=== PATIENT | female | born 1975 | race African-American/Black ===

== ENCOUNTER 2020-07-12 19:22 | Inpatient (IN) | payer OTHER ==
[2020-07-12] MEDS ORDERED: RAPID SEQUENCE INTUBATION KIT NR ONE (19:57)
[2020-07-12] MEDS ORDERED: PROPOFOL 1,000,000 MCG/100 ML VIAL ONE (20:08)
[2020-07-12] MEDS ORDERED: ROCURONIUM BROMIDE 50 MG/5 ML VIAL IV ONE (20:12)
[2020-07-12] MEDS ORDERED: ETOMIDATE 40 MG/20 ML VIAL IVPUSH ONE (20:12)
[2020-07-12] MEDS: PROPOFOL 1,000,000 MCG/100 ML VIAL IVPB SCH (20:15)
[2020-07-12] MEDS ORDERED: PIPERACILLIN/TAZOB 4.5 GM 4.5 GM in DEXTROSE 5%-WATER 100 ML IVPB ONE (20:19)
[2020-07-12] MEDS ORDERED: VANCOMYCIN 1 GM in D5W (PRE-DOCKED) 1,000 MG/250 ML IVPB ONE (20:19)
[2020-07-12] MEDS ORDERED: SODIUM CHLORIDE 0.9% 1000 ML INFUS.BAG IV ONE (20:20)
[2020-07-12 20:27] LABS: BASO % 0.5 % (0-2.0); HEMATOCRIT 48.3 % (32.4-45.2); HEMOGLOBIN 14.9 GM/dL (10.7-15.3); LYMPH % 14.6 % (8-40); MCH 24.5 pg (25.7-33.7); MCHC 30.9 g/dl (32.0-36.0); MEAN CELL VOLUME 79.3 fl (80-96); MEAN PLT VOLUME 8.4 fl (7.5-11.1); MONO % 8.3 % (3.8-10.2); NEUT % 76.6 % (42.8-82.8); PLATELET COUNT 210 K/MM3 (134-434); RBC 6.09 M/mm3 (3.60-5.2); RDW 18.4 % (11.6-15.6); WHITE BLOOD COUNT 10.6 K/mm3 (4.0-10.0)
[2020-07-12 20:34] LABS: INR 0.94 (0.83-1.09); PROTHROMBIN TIME (PATIENT) 11.6 SEC (9.7-13.0)
[2020-07-12 20:54] LABS: VENOUS BASE EXCESS -6.1 mmol/L (-2-2)
[2020-07-12 20:54] LABS: CHLORIDE 100 mmol/L (98-107); POTASSIUM 3.8 mmol/L (3.5-5.1); SODIUM 144 mmol/L (136-145)
[2020-07-12 20:56] LABS: VENOUS PCO2 81.2 mmHg (38-52); VENOUS PH 7.12 (7.310-7.410)
[2020-07-12 20:57] LABS: ALBUMIN 3.4 g/dl (3.4-5.0); ANION GAP 16 MMOL/L (8-16); BLOOD UREA NITROGEN 63.9 mg/dL (7-18); CALCIUM 8.3 mg/dL (8.5-10.1); CO2 28 mmol/L (21-32); GLUCOSE,RANDOM 295 mg/dL (74-106); MAGNESIUM 2.6 mg/dL (1.8-2.4)
[2020-07-12 20:58] LABS: BILIRUBIN,DIRECT 0.2 mg/dL (0.0-0.2)
[2020-07-12 21:00] LABS: CREATININE 4.2 mg/dL (0.55-1.3); SGOT/AST 31 U/L (15-37); SGPT/ALT 17 U/L (13-61)
[2020-07-12 21:00] LABS: LDH 361 U/L (84-246)
[2020-07-12] MEDS ORDERED: LACTATED RINGERS SOLUTION 1000 ML INFUS.BAG IV ONE (21:00)
[2020-07-12 21:02] LABS: BILIRUBIN,TOTAL 0.5 mg/dL (0.2-1); TOT PROT 7.6 g/dl (6.4-8.2)
[2020-07-12 21:03] LABS: ALK PHOS 74 U/L (45-117)
[2020-07-12 21:04] LABS: LACTIC ACID 2.6 mmol/L (0.4-2.0)
[2020-07-12] MEDS ORDERED: MIDAZOLAM 100 MG/100 ML MG IVPB ONE (21:16)
[2020-07-12] MEDS: MIDAZOLAM 100 MG in SODIUM CHLORIDE 100 ML IVPB SCH (21:33)
[2020-07-12 21:38] LABS: ARTERIAL BLOOD GAS BASE EXCESS -2.9 mmol/L (-2-2); ARTERIAL BLOOD GAS PO2 96.4 mmHg (80-100); ARTERIAL BLOOD GAS pH 7.309 (7.350-7.450)
[2020-07-12 21:40] LABS: ALLENS TEST POSITIVE; ARTERIAL BLD GAS O2 SATURATION 96.5 mmHg (95-98)
[2020-07-12 21:41] LABS: VENT MODE V-AC; VENT RATE 18
[2020-07-12] MEDS ORDERED: PIPERACILLIN/TAZOB 4.5 GM 4.5 GM/100 ML BAG IVPB ONE (21:44)
[2020-07-12] MEDS ORDERED: FENTANYL IVPB 500 MCG/100 ML BAG IVPB ONE (21:48)
[2020-07-12] MEDS: FENTANYL IVPB 500 MCG/100 ML BAG IVPB SCH (21:55)
[2020-07-12 21:56] LABS: URINE APPEARANCE CLOUDY; URINE BILIRUBIN NEGATIVE (NEGATIVE); URINE COLOR DK YELLOW; URINE GLUCOSE (UA) NEGATIVE (NEGATIVE); URINE KETONE TRACE (NEGATIVE); URINE LEUK ESTERASE TRACE (NEGATIVE); URINE NITRITE NEGATIVE (NEGATIVE); URINE PROTEIN 3+ (NEGATIVE)
[2020-07-12 22:06] LABS: COCAINE, UR NEGATIVE ng/ml (CUTOFF=300); URINE AMPHETAMINES NEGATIVE ng/ml (CUTOFF=500); URINE BARBITURATES NEGATIVE ng/ml (CUTOFF=200)
[2020-07-12 22:07] LABS: METHADONE, UR NEGATIVE ng/ml (CUTOFF=300); PHENCYCLIDINE,URINE NEGATIVE ng/ml (CUTOFF=25)
[2020-07-12 22:20] LABS: OPIATES, URI NEGATIVE ng/ml (CUTOFF=300)
[2020-07-12 22:22] LABS: URINE BENZODIAZEPINES NEGATIVE ng/ml (CUTOFF=200)
[2020-07-12] MEDS ORDERED: VANCOMYCIN 1 GRAM (PRE-DOCKED) 1,000 MG/250 ML BAG IVPB ONE (22:29)
[2020-07-12 22:31] LABS: EPI CELLS 24 /uL (0-25.1); HYALINE CASTS 10 /uL (0-3.1); URINE BACTERIA 3298 /uL (0-1359); URINE RBC 11 /uL (0-23.9); URINE WBC 247 /uL (0-25.8)
[2020-07-12] MEDS ORDERED: SODIUM CHLORIDE 1,000 ML IV STA (23:19)
[2020-07-12 23:31] LABS: URINE CRYSTALS NEGATIVE /hpf
[2020-07-13] MEDS ORDERED: PIPERACILLIN/TAZOBACTAM 2.25 GM VIAL IVPB ONE ×2 (02:52→10:11)
[2020-07-13] MEDS ORDERED: DEXTROSE 5%-WATER - 50 ML IVPB ONE ×2 (02:53→10:11)
[2020-07-13] MEDS: VECURONIUM BROMIDE 100 MG/100 ML BAG IVPB SCH (02:57)
[2020-07-13] MEDS: PIPERACILLIN/TAZOB 2.25 GM 2.25 GM in DEXTROSE 5%-WATER - 50 ML IVPB SCH ×3 (02:57→16:46)
[2020-07-13] MEDS ORDERED: FENTANYL NS IVPB 500 MCG/100 ML BAG IVPB ONE (04:16)
[2020-07-13 04:20] LABS: POTASSIUM 3.5 mmol/L (3.5-5.1)
[2020-07-13 04:21] LABS: CALCIUM 7.1 mg/dL (8.5-10.1)
[2020-07-13 04:23] LABS: BLOOD UREA NITROGEN 60.6 mg/dL (7-18)
[2020-07-13 04:25] LABS: CREATININE 3.5 mg/dL (0.55-1.3)
[2020-07-13 04:27] LABS: BILIRUBIN,TOTAL 0.4 mg/dL (0.2-1); TOT PROT 5.7 g/dl (6.4-8.2)
[2020-07-13 04:46] LABS: ALBUMIN 2.5 g/dl (3.4-5.0)
[2020-07-13 05:44] LABS: ARTERIAL BLOOD GAS BASE EXCESS -1.8 mmol/L (-2-2); ARTERIAL BLOOD GAS PO2 78.4 mmHg (80-100); ARTERIAL BLOOD GAS pH 7.389 (7.350-7.450)
[2020-07-13 05:48] LABS: ALLENS TEST POSITIVE
[2020-07-13 05:49] LABS: VENT MODE A/C; VENT RATE 18
[2020-07-13] MEDS: HEPARIN NA (PORCINE) 5,000 UNITS/ML 1ML VIAL SQ SCH ×2 (06:17→13:13)
[2020-07-13 06:47] LABS: HEMATOCRIT 42.3 % (32.4-45.2); HEMOGLOBIN 13.6 GM/dL (10.7-15.3); MCH 24.9 pg (25.7-33.7); MCHC 32.2 g/dl (32.0-36.0); MEAN CELL VOLUME 77.4 fl (80-96); MEAN PLT VOLUME 8.4 fl (7.5-11.1); PLATELET COUNT 188 K/MM3 (134-434); RBC 5.47 M/mm3 (3.60-5.2); RDW 18.2 % (11.6-15.6); WHITE BLOOD COUNT 6.5 K/mm3 (4.0-10.0)
[2020-07-13 07:06] LABS: POTASSIUM 3.7 mmol/L (3.5-5.1)
[2020-07-13 07:19] LABS: CALCIUM 7.9 mg/dL (8.5-10.1)
[2020-07-13 07:20] LABS: ALBUMIN 2.5 g/dl (3.4-5.0); CREATININE 3.5 mg/dL (0.55-1.3); MAGNESIUM 2.1 mg/dL (1.8-2.4)
[2020-07-13 07:21] LABS: BLOOD UREA NITROGEN 62.8 mg/dL (7-18); PHOSPHOROUS 4.6 mg/dL (2.5-4.9)
[2020-07-13 07:22] LABS: BILIRUBIN,TOTAL 0.5 mg/dL (0.2-1); TOT PROT 5.8 g/dl (6.4-8.2)
[2020-07-13] MEDS: DEXAMETHASONE SOD PHOSPHATE 4 MG/1 ML VIAL IVPUSH SCH (10:13)
[2020-07-13 10:50] LABS: POTASSIUM 3.5 mmol/L (3.5-5.1)
[2020-07-13 10:52] LABS: CALCIUM 7.5 mg/dL (8.5-10.1)
[2020-07-13 10:53] LABS: ALBUMIN 2.6 g/dl (3.4-5.0); BLOOD UREA NITROGEN 62.6 mg/dL (7-18)
[2020-07-13 10:56] LABS: CREATININE 3.5 mg/dL (0.55-1.3)
[2020-07-13 10:57] LABS: BILIRUBIN,TOTAL 0.5 mg/dL (0.2-1); TOT PROT 5.8 g/dl (6.4-8.2)
[2020-07-13] MEDS: MUPIROCIN 2% TOPICAL OINTMENT FOR DECOLONIZATION NS SCH (11:00)
[2020-07-13] MEDS: INSULIN SLIDING SCALE (NOVOLOG) 1 VIAL SQ SCH ×2 (11:05→17:05)
[2020-07-13] MEDS ORDERED: DEXTROSE 5%-WATER 100 ML IVPB ONE (12:17)
[2020-07-13] MEDS: CEFTRIAXONE 2 GM in DEXTROSE 5%-WATER 100 ML IVPB SCH (12:20)
[2020-07-13] MEDS: AZITHROMYCIN IVPB 500 MG/250 ML BAG IVPB SCH (12:20)
[2020-07-13] MEDS: LACTATED RINGERS SOLUTION 1,000 ML/1,000 ML INFUS.BAG IV SCH (16:45)
[2020-07-13] MEDS ORDERED: MIDAZOLAM IN 0.9 % SOD.CHLORID 1 MG/1 ML PLAST..BAG ONE (22:09)
[2020-07-13] MEDS: MIDAZOLAM 100 MG in SODIUM CHLORIDE 100 ML IVPB SCH (22:23)
[2020-07-14] MEDS: HEPARIN NA (PORCINE) 5,000 UNITS/ML 1ML VIAL SQ SCH ×4 (00:04→22:48)
[2020-07-14] MEDS: INSULIN SLIDING SCALE (NOVOLOG) 1 VIAL SQ SCH ×5 (00:47→22:49)
[2020-07-14] MEDS: MUPIROCIN 2% TOPICAL OINTMENT FOR DECOLONIZATION NS SCH ×3 (06:55→22:51)
[2020-07-14] MEDS: CHLORHEXIDINE GLUCONATE 4% CLEANSER FOR DECOLONIZATION TP SCH ×2 (06:55→22:52)
[2020-07-14 06:56] LABS: ARTERIAL BLOOD GAS BASE EXCESS -5.4 mmol/L (-2-2); ARTERIAL BLOOD GAS PO2 53.5 mmHg (80-100); ARTERIAL BLOOD GAS pH 7.357 (7.350-7.450)
[2020-07-14] MEDS ORDERED: MIDAZOLAM IN 0.9 % SOD.CHLORID 1 MG/1 ML PLAST..BAG ONE ×2 (06:59→16:46)
[2020-07-14 07:00] LABS: ALLENS TEST POSITIVE
[2020-07-14 07:01] LABS: VENT MODE A/C; VENT RATE 28
[2020-07-14 07:37] LABS: BASO % 0.2 % (0-2.0); HEMOGLOBIN 13.8 GM/dL (10.7-15.3); LYMPH % 6.2 % (8-40); MCH 24.7 pg (25.7-33.7); MCHC 32.1 g/dl (32.0-36.0); MEAN CELL VOLUME 76.9 fl (80-96); MEAN PLT VOLUME 9.3 fl (7.5-11.1); NEUT % 89.6 % (42.8-82.8); PLATELET COUNT 175 K/MM3 (134-434); RBC 5.59 M/mm3 (3.60-5.2); RDW 18.7 % (11.6-15.6); WHITE BLOOD COUNT 6.6 K/mm3 (4.0-10.0)
[2020-07-14 07:47] LABS: POTASSIUM 3.8 mmol/L (3.5-5.1)
[2020-07-14 07:48] LABS: ALBUMIN 2.2 g/dl (3.4-5.0); BLOOD UREA NITROGEN 61.5 mg/dL (7-18)
[2020-07-14 07:51] LABS: CREATININE 2.7 mg/dL (0.55-1.3); PHOSPHOROUS 5.1 mg/dL (2.5-4.9)
[2020-07-14 07:52] LABS: BILIRUBIN,TOTAL 0.3 mg/dL (0.2-1)
[2020-07-14 07:53] LABS: TOT PROT 5.6 g/dl (6.4-8.2)
[2020-07-14] MEDS ORDERED: DEXTROSE 5%-WATER 100 ML IVPB ONE (08:10)
[2020-07-14] MEDS: DEXAMETHASONE SOD PHOSPHATE 4 MG/1 ML VIAL IVPUSH SCH (09:01)
[2020-07-14] MEDS: AZITHROMYCIN IVPB 500 MG/250 ML BAG IVPB SCH (09:02)
[2020-07-14] MEDS: CEFTRIAXONE 2 GM in DEXTROSE 5%-WATER 100 ML IVPB SCH (09:02)
[2020-07-14 15:26] VITALS: BMI 36.8
[2020-07-14] MEDS: DEXAMETHASONE SOD PHOSPHATE 10 MG/1 ML VIAL IVPUSH SCH (17:24)
[2020-07-14] MEDS: AMINO ACIDS/PROTEIN HYDROLYS 30 ML LIQUID.PKT PO SCH (17:24)
[2020-07-14] MEDS: FENTANYL IVPB 500 MCG/100 ML BAG IVPB SCH (17:26)
[2020-07-14] MEDS: PROPOFOL 1,000,000 MCG/100 ML VIAL IVPB SCH (17:26)
[2020-07-14] MEDS: VECURONIUM BROMIDE 100 MG/100 ML BAG IVPB SCH (17:27)
[2020-07-14] MEDS: LACTATED RINGERS SOLUTION 1,000 ML/1,000 ML INFUS.BAG IV SCH ×2 (17:27)
[2020-07-14] MEDS ORDERED: DEXAMETHASONE SOD PHOSPHATE 10 MG/1 ML VIAL IVPUSH SCH (18:00)
[2020-07-14] MEDS: PIPERACILLIN/TAZOB 2.25 GM 2.25 GM in DEXTROSE 5%-WATER - 50 ML IVPB SCH (18:00)
[2020-07-14] MEDS ORDERED: ALBUTEROL SO4 0.083% IH SOL 2.5 MG/3 ML VIAL.NEB. NEB PRN (18:54)
[2020-07-14] MEDS: NOREPINEPHRINE NS PREMIX 8,000 MCG/500 ML BAG IVPB SCH (20:40)
[2020-07-15] MEDS: DEXAMETHASONE SOD PHOSPHATE 10 MG/1 ML VIAL IVPUSH SCH ×3 (01:41→18:19)
[2020-07-15] MEDS: INSULIN SLIDING SCALE (NOVOLOG) 1 VIAL SQ SCH ×4 (06:43→22:54)
[2020-07-15] MEDS: HEPARIN NA (PORCINE) 5,000 UNITS/ML 1ML VIAL SQ SCH ×3 (06:43→22:27)
[2020-07-15 07:06] LABS: BASO % 0.6 % (0-2.0); HEMATOCRIT 45.2 % (32.4-45.2); HEMOGLOBIN 14.7 GM/dL (10.7-15.3); LYMPH % 2.4 % (8-40); MCHC 32.5 g/dl (32.0-36.0); MONO % 3.7 % (3.8-10.2); NEUT % 93.3 % (42.8-82.8); PLATELET COUNT 237 K/MM3 (134-434); RBC 5.87 M/mm3 (3.60-5.2); WHITE BLOOD COUNT 9.1 K/mm3 (4.0-10.0)
[2020-07-15] MEDS ORDERED: MIDAZOLAM IN 0.9 % SOD.CHLORID 1 MG/1 ML PLAST..BAG ONE ×2 (07:18→18:16)
[2020-07-15] MEDS ORDERED: DEXTROSE 5%-WATER 100 ML IVPB ONE (07:19)
[2020-07-15 07:25] LABS: POTASSIUM 4.4 mmol/L (3.5-5.1)
[2020-07-15 07:29] LABS: ALBUMIN 2.4 g/dl (3.4-5.0); BLOOD UREA NITROGEN 57.9 mg/dL (7-18); MAGNESIUM 2.3 mg/dL (1.8-2.4)
[2020-07-15 07:31] LABS: CREATININE 2.4 mg/dL (0.55-1.3)
[2020-07-15 07:32] LABS: PHOSPHOROUS 6.1 mg/dL (2.5-4.9)
[2020-07-15 07:33] LABS: BILIRUBIN,TOTAL 0.4 mg/dL (0.2-1); TOT PROT 6.3 g/dl (6.4-8.2)
[2020-07-15] MEDS: MIDAZOLAM 100 MG in SODIUM CHLORIDE 100 ML IVPB SCH ×2 (07:45→21:15)
[2020-07-15] MEDS: VECURONIUM BROMIDE 100 MG/100 ML BAG IVPB SCH (07:45)
[2020-07-15] MEDS: PROPOFOL 1,000,000 MCG/100 ML VIAL IVPB SCH ×2 (09:21→22:25)
[2020-07-15] MEDS: FENTANYL IVPB 500 MCG/100 ML BAG IVPB SCH ×2 (09:21→21:15)
[2020-07-15] MEDS: CEFTRIAXONE 2 GM in DEXTROSE 5%-WATER 100 ML IVPB SCH (09:21)
[2020-07-15] MEDS: MUPIROCIN 2% TOPICAL OINTMENT FOR DECOLONIZATION NS SCH ×2 (09:22→22:26)
[2020-07-15] MEDS: AZITHROMYCIN IVPB 500 MG/250 ML BAG IVPB SCH (09:22)
[2020-07-15] MEDS: AMINO ACIDS/PROTEIN HYDROLYS 30 ML LIQUID.PKT PO SCH ×2 (09:22→18:19)
[2020-07-15 09:48] LABS: ANISOCYTOSIS 0; MACROCYTOSIS 0; PLATELET ESTIMATE NORMAL
[2020-07-15] MEDS: LACTATED RINGERS SOLUTION 1,000 ML/1,000 ML INFUS.BAG IV SCH (14:44)
[2020-07-15] MEDS: NOREPINEPHRINE NS PREMIX 8,000 MCG/500 ML BAG IVPB SCH (19:45)
[2020-07-15] MEDS: CHLORHEXIDINE GLUCONATE 4% CLEANSER FOR DECOLONIZATION TP SCH (22:27)
[2020-07-16] MEDS: DEXAMETHASONE SOD PHOSPHATE 10 MG/1 ML VIAL IVPUSH SCH ×3 (02:54→17:50)
[2020-07-16] MEDS: VECURONIUM BROMIDE 100 MG/100 ML BAG IVPB SCH (03:40)
[2020-07-16] MEDS: HEPARIN NA (PORCINE) 5,000 UNITS/ML 1ML VIAL SQ SCH ×3 (06:21→22:28)
[2020-07-16] MEDS: INSULIN SLIDING SCALE (NOVOLOG) 1 VIAL SQ SCH ×4 (06:22→22:29)
[2020-07-16 06:25] LABS: HEMATOCRIT 44.1 % (32.4-45.2); HEMOGLOBIN 13.9 GM/dL (10.7-15.3); MCH 24.7 pg (25.7-33.7); MCHC 31.6 g/dl (32.0-36.0); MEAN CELL VOLUME 77.9 fl (80-96); MEAN PLT VOLUME 9.5 fl (7.5-11.1); PLATELET COUNT 208 K/MM3 (134-434); RBC 5.65 M/mm3 (3.60-5.2); RDW 18.8 % (11.6-15.6); WHITE BLOOD COUNT 7.7 K/mm3 (4.0-10.0)
[2020-07-16 06:31] LABS: POTASSIUM 4.5 mmol/L (3.5-5.1)
[2020-07-16 06:33] LABS: CALCIUM 8.1 mg/dL (8.5-10.1)
[2020-07-16 06:34] LABS: MAGNESIUM 2.4 mg/dL (1.8-2.4)
[2020-07-16 06:37] LABS: PHOSPHOROUS 4.9 mg/dL (2.5-4.9)
[2020-07-16] MEDS ORDERED: MIDAZOLAM IN 0.9 % SOD.CHLORID 1 MG/1 ML PLAST..BAG ONE ×2 (06:56→18:05)
[2020-07-16] MEDS ORDERED: FENTANYL NS IVPB 500 MCG/100 ML BAG IVPB ONE ×2 (06:56→23:17)
[2020-07-16] MEDS: AMINO ACIDS/PROTEIN HYDROLYS 30 ML LIQUID.PKT PO SCH ×2 (08:50→17:50)
[2020-07-16] MEDS: MUPIROCIN 2% TOPICAL OINTMENT FOR DECOLONIZATION NS SCH ×2 (09:00→22:28)
[2020-07-16] MEDS: AZITHROMYCIN IVPB 500 MG/250 ML BAG IVPB SCH (09:00)
[2020-07-16] MEDS: CEFTRIAXONE 2 GM in DEXTROSE 5%-WATER 100 ML IVPB SCH (09:38)
[2020-07-16] MEDS: LACTATED RINGERS SOLUTION 1,000 ML/1,000 ML INFUS.BAG IV SCH (14:03)
[2020-07-16] MEDS: NOREPINEPHRINE NS PREMIX 8,000 MCG/500 ML BAG IVPB SCH (19:45)
[2020-07-16] MEDS: PROPOFOL 1,000,000 MCG/100 ML VIAL IVPB SCH (21:45)
[2020-07-16] MEDS: INSULIN (LEVEMIR) 100 UNITS/ML UNITS SQ SCH (22:29)
[2020-07-16] MEDS: CHLORHEXIDINE GLUCONATE 4% CLEANSER FOR DECOLONIZATION TP SCH (22:29)
[2020-07-16] MEDS: FENTANYL IVPB 500 MCG/100 ML BAG IVPB SCH (23:20)
[2020-07-17] MEDS: DEXAMETHASONE SOD PHOSPHATE 10 MG/1 ML VIAL IVPUSH SCH ×3 (01:36→17:16)
[2020-07-17 06:08] LABS: ARTERIAL BLD GAS O2 SATURATION 85.8 mmHg (95-98); ARTERIAL BLOOD GAS BASE EXCESS -0.6 mmol/L (-2-2); ARTERIAL BLOOD GAS PO2 53.9 mmHg (80-100)
[2020-07-17] MEDS: INSULIN SLIDING SCALE (NOVOLOG) 1 VIAL SQ SCH ×4 (06:23→21:04)
[2020-07-17] MEDS: HEPARIN NA (PORCINE) 5,000 UNITS/ML 1ML VIAL SQ SCH ×3 (06:23→21:02)
[2020-07-17 06:37] LABS: HEMATOCRIT 42.7 % (32.4-45.2); HEMOGLOBIN 13.7 GM/dL (10.7-15.3); LYMPH % 0.7 % (8-40); MCH 24.9 pg (25.7-33.7); MCHC 32.1 g/dl (32.0-36.0); MEAN CELL VOLUME 77.6 fl (80-96); MEAN PLT VOLUME 8.9 fl (7.5-11.1); MONO % 2.5 % (3.8-10.2); NEUT % 96.8 % (42.8-82.8); PLATELET COUNT 242 K/MM3 (134-434); RBC 5.51 M/mm3 (3.60-5.2); RDW 19.2 % (11.6-15.6)
[2020-07-17 06:41] LABS: ALLENS TEST POSITIVE; VENT MODE A/C
[2020-07-17 06:42] LABS: VENT RATE 28
[2020-07-17 06:57] LABS: POTASSIUM 4.5 mmol/L (3.5-5.1)
[2020-07-17 06:59] LABS: CALCIUM 7.8 mg/dL (8.5-10.1)
[2020-07-17 07:00] LABS: BLOOD UREA NITROGEN 53.6 mg/dL (7-18); MAGNESIUM 2.4 mg/dL (1.8-2.4)
[2020-07-17 07:03] LABS: CREATININE 1.9 mg/dL (0.55-1.3); PHOSPHOROUS 4.2 mg/dL (2.5-4.9)
[2020-07-17 07:04] LABS: BILIRUBIN,TOTAL 0.2 mg/dL (0.2-1); TOT PROT 5.7 g/dl (6.4-8.2)
[2020-07-17] MEDS ORDERED: FENTANYL NS IVPB 500 MCG/100 ML BAG IVPB ONE (07:24)
[2020-07-17] MEDS ORDERED: DEXTROSE 5%-WATER 100 ML IVPB ONE (07:25)
[2020-07-17 08:45] LABS: ANISOCYTOSIS 2+; MACROCYTOSIS 0; PLATELET ESTIMATE NORMAL
[2020-07-17] MEDS: CEFTRIAXONE 2 GM in DEXTROSE 5%-WATER 100 ML IVPB SCH (09:12)
[2020-07-17] MEDS: MIDAZOLAM 100 MG in SODIUM CHLORIDE 100 ML IVPB SCH ×2 (09:13→20:55)
[2020-07-17] MEDS: AMINO ACIDS/PROTEIN HYDROLYS 30 ML LIQUID.PKT PO SCH ×2 (09:13→17:16)
[2020-07-17] MEDS: VECURONIUM BROMIDE 100 MG/100 ML BAG IVPB SCH (09:13)
[2020-07-17] MEDS: MUPIROCIN 2% TOPICAL OINTMENT FOR DECOLONIZATION NS SCH ×2 (09:13→21:02)
[2020-07-17] MEDS: AZITHROMYCIN IVPB 500 MG/250 ML BAG IVPB SCH (09:14)
[2020-07-17] MEDS: LACTATED RINGERS SOLUTION 1,000 ML/1,000 ML INFUS.BAG IV SCH (16:06)
[2020-07-17] MEDS ORDERED: MIDAZOLAM IN 0.9 % SOD.CHLORID 1 MG/1 ML PLAST..BAG ONE (16:18)
[2020-07-17] MEDS ORDERED: DEXAMETHASONE SOD PHOSPHATE 10 MG/1 ML VIAL IVPUSH SCH (18:00)
[2020-07-17] MEDS: FENTANYL IVPB 500 MCG/100 ML BAG IVPB SCH (20:55)
[2020-07-17] MEDS: PROPOFOL 1,000,000 MCG/100 ML VIAL IVPB SCH (20:55)
[2020-07-17] MEDS: NOREPINEPHRINE NS PREMIX 8,000 MCG/500 ML BAG IVPB SCH (20:55)
[2020-07-17] MEDS: CHLORHEXIDINE GLUCONATE 4% CLEANSER FOR DECOLONIZATION TP SCH (21:02)
[2020-07-17] MEDS: INSULIN (LEVEMIR) 100 UNITS/ML UNITS SQ SCH (21:03)
[2020-07-17] MEDS ORDERED: PROPOFOL 1,000,000 MCG/100 ML VIAL ONE (23:48)
[2020-07-18] MEDS: FENTANYL IVPB 500 MCG/100 ML BAG IVPB SCH ×2 (01:00→06:35)
[2020-07-18] MEDS: DEXAMETHASONE SOD PHOSPHATE 10 MG/1 ML VIAL IVPUSH SCH ×3 (01:21→18:36)
[2020-07-18] MEDS: VECURONIUM BROMIDE 100 MG/100 ML BAG IVPB SCH (03:15)
[2020-07-18] MEDS: INSULIN SLIDING SCALE (NOVOLOG) 1 VIAL SQ SCH ×3 (06:10→18:35)
[2020-07-18] MEDS: HEPARIN NA (PORCINE) 5,000 UNITS/ML 1ML VIAL SQ SCH ×2 (06:10→13:59)
[2020-07-18 06:51] LABS: HEMATOCRIT 42.6 % (32.4-45.2); HEMOGLOBIN 13.5 GM/dL (10.7-15.3); MCH 24.7 pg (25.7-33.7); MCHC 31.7 g/dl (32.0-36.0); MEAN CELL VOLUME 77.9 fl (80-96); MEAN PLT VOLUME 8.6 fl (7.5-11.1); PLATELET COUNT 289 K/MM3 (134-434); RBC 5.47 M/mm3 (3.60-5.2); WHITE BLOOD COUNT 17.4 K/mm3 (4.0-10.0)
[2020-07-18 07:03] LABS: INR 1.08 (0.83-1.09)
[2020-07-18] MEDS ORDERED: MIDAZOLAM IN 0.9 % SOD.CHLORID 1 MG/1 ML PLAST..BAG ONE (07:05)
[2020-07-18 07:19] LABS: CALCIUM 8.4 mg/dL (8.5-10.1)
[2020-07-18 07:20] LABS: ALBUMIN 1.8 g/dl (3.4-5.0); BLOOD UREA NITROGEN 49.5 mg/dL (7-18)
[2020-07-18 07:23] LABS: CREATININE 1.8 mg/dL (0.55-1.3)
[2020-07-18 07:24] LABS: BILIRUBIN,TOTAL 0.2 mg/dL (0.2-1)
[2020-07-18 07:25] LABS: TOT PROT 5.5 g/dl (6.4-8.2)
[2020-07-18] MEDS ORDERED: DEXTROSE 5%-WATER 100 ML IVPB ONE (07:26)
[2020-07-18] MEDS: AMINO ACIDS/PROTEIN HYDROLYS 30 ML LIQUID.PKT PO SCH ×2 (09:12→18:36)
[2020-07-18] MEDS: CEFTRIAXONE 2 GM in DEXTROSE 5%-WATER 100 ML IVPB SCH (09:12)
[2020-07-18] MEDS: AZITHROMYCIN IVPB 500 MG/250 ML BAG IVPB SCH (09:13)
[2020-07-18 10:31] VITALS: TEMP 98
[2020-07-18] MEDS ORDERED: BUDESONIDE 0.25 MG/2ML INH SUSP VIAL NEB PRN (11:43)
[2020-07-18] MEDS: LACTATED RINGERS SOLUTION 1,000 ML/1,000 ML INFUS.BAG IV SCH (13:59)
[2020-07-18] MEDS ORDERED: FUROSEMIDE 40 MG/4 ML INJECTABLE VIAL IVPUSH ONE (14:20)
[2020-07-18] MEDS ORDERED: FUROSEMIDE 40 MG/4 ML INJECTABLE VIAL ONE (14:23)
[2020-07-18] MEDS ORDERED: DOPAMINE 400 MG/D5W - 400,000 MCG/250 ML INFUS.BAG IVPB ONE (14:28)
[2020-07-18 16:41] VITALS: BP 131/59; PULSE 92
== END 2020-07-18 17:43 | disposition expired | DRG 207 ==
LOC: JER 19:22 → JERBED 21:49 → JICU 07-13 01:20
PROVIDERS: ADMIT Internal Medicine; ATTEND Internal Medicine
PROC: 0BH17EZ Insertion of Endotracheal Airway into Trachea, Via Natural or Artificial Opening (ICD-10-PCS; principal; 2020-07-12)
PROC: 5A1955Z Respiratory Ventilation, Greater than 96 Consecutive Hours (ICD-10-PCS; 2020-07-12)
PROC: 05HM33Z Insertion of Infusion Device into Right Internal Jugular Vein, Percutaneous Approach (ICD-10-PCS; 2020-07-12)
PROC: B543ZZA Ultrasonography of Right Jugular Veins, Guidance (ICD-10-PCS; 2020-07-12)
PROC: XW13325 Transfusion of Convalescent Plasma (Nonautologous) into Peripheral Vein, Percutaneous Approach, New Technology Group 5 (ICD-10-PCS; 2020-07-14)
PROC: 5A12012 Performance of Cardiac Output, Single, Manual (ICD-10-PCS; 2020-07-18)
DX: U07.1 COVID-19 (principal); J12.82 Pneumonia due to coronavirus disease 2019; J80 Acute respiratory distress syndrome; G93.41 Metabolic encephalopathy; I61.9 Nontraumatic intracerebral hemorrhage, unspecified; N17.9 Acute kidney failure, unspecified; E87.2 Acidosis; I10 Essential (primary) hypertension; E78.5 Hyperlipidemia, unspecified; D72.829 Elevated white blood cell count, unspecified; E11.9 Type 2 diabetes mellitus without complications; I46.9 Cardiac arrest, cause unspecified; N28.1 Cyst of kidney, acquired; E66.9 Obesity, unspecified; Z68.36 Body mass index [BMI] 36.0-36.9, adult; Z87.442 Personal history of urinary calculi
CPT/HCPCS: 36415; 36430; 36600; 70450-TC; 71045-TC-FY; 71250-TC; 72125-TC; 74176-TC; 76775-TC; 76937; 80048; 80053; 80307; 81003; 82010; 82248; 82436; 82550; 82553; 82728; 82803; 82962; 83036; 83605; 83615; 83735; 83935; 84100; 84133; 84156; 84300; 84436; 84443; 84484; 84703; 85025; 85027; 85379; 85610; 85651; 85730; 86140; 86480; 86769; 86850; 86900; 86901; 87040; 87070; 87086; 87205; 87804; 87899; 93005; 93010; 93306-TC; 94002; 94640; 99291; C9803; G0480; J1100; J1644; P9017; U0003; U0005